=== PATIENT | female | born 1985 | race Caucasian/White ===

== ENCOUNTER 2017-07-31 13:56 | Emergency (ER) | payer MEDICARE ==
[~2017-07-31] VITALS: Ht 167.6 cm; Wt 88.2 kg
[~2017-07-31 13:56] MED LIST: RISP1TAB45 PO; ZOLP10TA PO
[2017-07-31 16:39] VITALS: BP 158/96
== END 2017-07-31 16:41 | disposition home or self-care (01) ==
LOC: ED 16:16
DX: F41.9 Anxiety disorder, unspecified (principal); I10 Essential (primary) hypertension; R45.851 Suicidal ideations
CPT/HCPCS: 93005; 99284

== ENCOUNTER 2019-01-27 20:45 | Emergency (ER) | payer MEDICARE ==
[~2019-01-27] VITALS: Ht 170.2 cm; Wt 67.0 kg
[2019-01-27 20:47] VITALS: BP 114/71
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
--- NOTE | 2019-01-27 21:52 | NUR ---
UNABLE TO OBTAIN CLINICAL SCREEN OR PHYSICAL ASSESSMENT DUE TO PT AGGRESSIVE BEHAVIOR AND DUE TO PT UNWILLINGNESS TO COOPERATE WITH STAFF QUESTIONS.
[2019-01-27 22:39] LABS: ALANINE AMINOTRANSFERASE 23 U/L (12-78); ALBUMIN 3.6 g/dL (3.4-5.0); ANION GAP 7 mmol/L (5-15); CALCIUM 9.1 mg/dL (8.5-10.1); CHLORIDE 109 mmol/L (98-107)
[2019-01-27 22:40] LABS: BASOPHILS # (AUTO) 0.06 x10^3/uL (0-0.1); BASOPHILS % (AUTO) 1 % (0-1); EOSINOPHILS # (AUTO) 0.13 x10^3/uL (0-0.4); EOSINOPHILS % (AUTO) 1 % (1-7); LYMPHOCYTES # (AUTO) 2.06 x10^3/uL (1-3.4); LYMPHOCYTES % (AUTO) 19 % (22-44); MD NO; MEAN CORPUSCULAR HEMOGLOBIN 30.1 pg (27.0-34.8); MEAN CORPUSCULAR HGB CONC 32.6 g/dL (32.4-35.8); MEAN CORPUSCULAR VOLUME 92.1 fL (80-100); MEAN PLATELET VOLUME 10.5 fL (7.4-10.4); MONOCYTES # (AUTO) 0.86 x10^3/uL (0.2-0.8); MONOCYTES % (AUTO) 8 % (2-9); NEUTROPHILS # (AUTO) 7.87 x10^3/uL (1.8-6.8); NEUTROPHILS % (AUTO) 72 % (42-75); PLATELET COUNT 231 x10^3/uL (130-400); RED BLOOD COUNT 5.08 x10^6/uL (3.82-5.3); RED CELL DISTRIBUTION WIDTH 13.6 % (9.6-15.2); SALICYLATE LEVEL < 1.7 mg/dL (2.8-20.0)
[2019-01-27 22:41] LABS: ALKALINE PHOSPHATASE 90 U/L (45-117); BILIRUBIN,TOTAL 0.5 mg/dL (0.2-1.0); CREATININE 0.78 mg/dL (0.55-1.02); TOTAL PROTEIN 7.6 g/dL (6.4-8.2)
--- NOTE | 2019-01-27 23:31 | NUR ---
REPORT FROM INDRA ZARAGOZA. PT AMBULATED STEADILY TO ROOM 41 FOR CONTINUED CARE. ROOM SECURE. SITTER PRESENT. NO PERSONAL BELONGINGS NOTED IN ROOM. PT AWAKE/ALERT, REQUESTING A MEAL. PT UP TO RESTROOM TO PROVIDE DOA. SI COMPLIANT MEAL TRAY ORDERED
--- NOTE | 2019-01-27 23:38 | NUR ---
DOA COLLECTED AND SENT TO LAB
[2019-01-27 23:58] LABS: AMPHETAMINE SCREEN, URINE Negative (Negative); BARBITURATE SCREEN, URINE Negative (Negative); BENZODIAZEPINE SCREEN, URINE Negative (Negative); CANNABINOID SCREEN, URINE Negative (Negative); COCAINE SCREEN, URINE Negative (Negative); METHADONE SCREEN, URINE Negative (Negative); OPIATE SCREEN, URINE Negative (Negative)
--- NOTE | 2019-01-28 00:23 | NUR ---
PT PROVIDED SI COMPLIANT MEAL TRAY. PT CALM AND COOPERATIVE. SITTER REMAINS AT DOORWAY
--- NOTE | 2019-01-28 01:25 | NUR ---
REPORT RECEIVED FROM INDRA MARCOS. PLAN OF CARE DISCUSSED.
--- NOTE | 2019-01-28 01:39 | NUR ---
PATIENT RESTING IN HOSPITAL BED, RESPIRATIONS EVEN AND UNLABORED. DENIES NEEDS AT THIS TIME.
--- NOTE | 2019-01-28 01:54 | NUR ---
REPORT GIVEN TO INDRA LINTON. PLAN OF CARE DISCUSSED. INDRA LINTON STATES THEY WILL CALL AFTER THEY GET PSYCHIATRIST ORDERS TO SEND PATIENT UP.
== END 2019-01-28 02:43 | disposition home or self-care (01) ==
LOC: ED 01-28 00:01
DX: F29 Unspecified psychosis not due to a substance or known physiological condition (principal); Z72.9 Problem related to lifestyle, unspecified
CPT/HCPCS: 36415; 80053; 80307; 85025; 99283; 99284

== ENCOUNTER 2019-06-06 07:46 | Emergency (ER) | payer MEDICARE, MEDICAID ==
[~2019-06-06] VITALS: Ht 172.7 cm; Wt 75.0 kg
[~2019-06-06 07:46] MED LIST changes: +CARV3.1212 PO; +OLAN10TA9 PO; +PALI156D IM; +PRAZ2CAP2 PO
--- NOTE | 2019-06-06 07:53 | NUR ---
PT REFUSING VS, ONLY ANSWERING SELECT QUESTIONS.
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
--- NOTE | 2019-06-06 08:12 | NUR ---
RN BACK TO BEDSIDE TO UPDATE PT ON POC, TO TELL PT THAT THE ERP ORDERED MEDS, PT WAVED RN AWAY. RN UNABLE TO UPDATE PT.
--- NOTE | 2019-06-06 08:19 | NUR ---
ERP TO BEDSIDE, EDUCATING PT THAT ED STAFF IS HERE TO HELP, INFORMING PT OF RIGHTS.
--- NOTE | 2019-06-06 08:28 | NUR ---
PT TO IMAGING.
[2019-06-06] MEDS ORDERED: ONDANSETRON ODT 4 MG PO ONE (08:30)
[2019-06-06] MEDS ORDERED: CEFAZOLIN PMX 1GM/50ML 50 ML IVPB ONE (08:30)
[2019-06-06] MEDS ORDERED: LORazepam 2 MG/ML, 1ML IVPush ONE (08:30)
[2019-06-06] MEDS ORDERED: DIPH,PERTUSS(ACELL),TET VAC/PF 0.5 ML IM-VACC ONE ×2 (08:30→10:02)
--- NOTE | 2019-06-06 09:04 | NUR ---
VEHICLE DETAILER TO BEDSIDE TO ATTEMPT TO START IV, PT TOLD HIM TO "GET THE F OUT, I WANT A DOCTOR, NOT A SH*T FACE FER LIKE YOU." ERPS TO BEDSIDE WHILE NURSE TO ATTEMPT IV START. IV START UNSUCCESSFUL. PT EDUCATED AGAIN ABOUT PROFESSIONAL MEDICAL STAFF-PATIENT RELATIONSHIP AND THAT MEDICAL STAFF IS HERE TO HELP.
[2019-06-06] MEDS ORDERED: CEFAZOLIN PMX 1GM/50ML 50 ML ONE (09:27)
[2019-06-06] MEDS ORDERED: LORazepam 2 MG/ML, 1ML ONE (09:27)
--- NOTE | 2019-06-06 09:33 | NUR ---
chiara bills spoke with dr meredith
--- NOTE | 2019-06-06 09:40 | NUR ---
PT COOPERATIVE WITH SECOND IV ATTEMPT, IV STARTED, PT MEDICATED TO APR.
--- NOTE | 2019-06-06 10:36 | NUR ---
PT SITTING IN BED, WATCHING TV. NO SIGNS OF DISTRESS, WILL CONTINUE TO MONITOR.
--- NOTE | 2019-06-06 10:48 | NUR ---
PT LAYING IN BED, EYES CLOSED, RESPIRATIONS EVEN AND UNLABORED, SNORING HEARD.
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
[2019-06-06 11:45] VITALS: BP 152/82
--- NOTE | 2019-06-06 11:46 | NUR ---
PT CONDITION UNCHANGED, LIGHTS OFF TO PROMOTE REST. WILL CONTINUE TO MONITOR.
[2019-06-06] MEDS ORDERED: LIDOCAINE 1%-EPI 1:100K, 20ML ONE (12:19)
[2019-06-06] MEDS ORDERED: LIDOCAINE 1%-EPI 1:100K, 20ML INFIL ONE (12:30)
--- NOTE | 2019-06-06 12:30 | NUR ---
LATE ENTRY: AT 1200 PLASTIC SURGEON TO BEDSIDE TO SUTURE LIP. PT REFUSED. ERP TO BEDSIDE TO EDUCATE PT, PT AGREED. PT OUT OF ROOM ATTEMPTED TO LEAVE TO SMOKE. BROUGHT IN CONSENT TO BE SIGNED, PT REFUSED TO SIGN. PT EDUCATED THAT IF SHE DIDN'T WANT TO SIGN FOR LIP SUTURE SHE WOULD BE LEAVING AMA. PT OUT OF ROOM, SIGNED AMA, GAIT STEADY.
== END 2019-06-06 12:36 | disposition left against medical advice (07) ==
LOC: ED 09:59
DX: S01.511A Laceration without foreign body of lip, initial encounter (principal); S09.90XA Unspecified injury of head, initial encounter; R55 Syncope and collapse; I10 Essential (primary) hypertension; W22.8XXA Striking against or struck by other objects, initial encounter; Y93.89 Activity, other specified; Y92.410 Unspecified street and highway as the place of occurrence of the external cause; Y99.8 Other external cause status
CPT/HCPCS: 70486; 90471; 90715; 96365; 96375; 99284; J0690; J2060

== ENCOUNTER 2019-07-27 01:46 | Emergency (ER) | payer MEDICARE, MEDICAID ==
[~2019-07-27] VITALS: Ht 160 cm; Wt 82.8 kg
[2019-07-27 01:52] VITALS: BP 187/105
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
== END 2019-07-27 02:20 | disposition home or self-care (01) ==
LOC: ED 02:11
DX: F15.959 Other stimulant use, unspecified with stimulant-induced psychotic disorder, unspecified (principal); F22 Delusional disorders; I10 Essential (primary) hypertension
CPT/HCPCS: 99281

== ENCOUNTER 2019-09-12 18:28 | Emergency (ER) | payer MEDICARE, MEDICAID ==
[~2019-09-12] VITALS: Ht 162.6 cm; Wt 63.0 kg
--- NOTE | 2019-09-12 18:59 | NUR ---
Pt BIB [facility] Deputies on a Legal 2000. Pt verbally aggressive with Deputies and this RN. Pt placed on hold at [facility] for inabiliy to care for herself. Pt initially refusing to change into hospital gown, states "You don't punish the zuluaga! And thanks for putting me in the [address] with these spying eyes on me you fat ass bitch" Pt advised that abusive language is innapropriate and will not be tolerated. Security called to stand by for staff safety as well as the Deputies remaining at bedside. Pt removed all clothes and placed them into the provided bag. Pt refusing to allow this RN to assess pt vital signs. Pt refusing to provide urine sample or blood sample. All pt belongings placed in two bags, labeled with pt information and secured in locker. Pt's room secured, sitter requested from mosaic layer. Pt advised that she may not leave the room unless escorted by a staff member and also that the door may be closed but the curtain must remain open so that staff can have direct line of sight on pt. Pt verbalizes understanding of this. Report given to Hunter RN to assume care at this time.
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
--- NOTE | 2019-09-12 19:13 | NUR ---
Pt moved to room 02. Bedside report to Brittanie vuong. Roller doors in place. Sitter in hallway. All belongings taken from pt.
--- NOTE | 2019-09-12 19:16 | NUR ---
PT AMBULATORY TO ROOM, STILL DENIES FOOD AND INTERVENTIONS, STATES "NO THANK YOU, B" PACING IN ROOM, IN VIEW OF SITTER.
--- NOTE | 2019-09-12 20:07 | NUR ---
PT CONTINUES TO REFUSE LABS INCLUDING UA, STATES SHE WANTS A "SCRIPT." PT EDUCATED THAT THE ERP CANNOT PROVIDE THIS TO HER WITHOUT LAB WORK, PT STILL REFUSES.
[2019-09-12] MEDS ORDERED: ZIPRASIDONE 20 MG INJ IM ONE ×4 (20:27→21:30)
--- NOTE | 2019-09-12 21:01 | NUR ---
PT PROVIDED WITH JUICE AT REQUEST AND RE-EDUCATED ABOUT UA. PT HAS GONE FROM YELLING STAFF WALK BY ROOM TO LAYING IN BED.
--- NOTE | 2019-09-12 21:16 | NUR ---
PT STILL REFUSING LABS AND UA. PT TOLD SITTER "I WANT TO GET THE F OUT OF HERE."
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
--- NOTE | 2019-09-12 22:12 | NUR ---
PT HAS BEEN UP TO USE BATHROOM AGAIN, AGAIN REFUSED TO TAKE UA CUP WITH HER. LAB HAS RETURNED TO BEDSIDE, PT REFUSED LAB DRAW AGAIN.
[2019-09-12 23:23] LABS: BASOPHILS # (AUTO) 0.04 x10^3/uL (0-0.1); BASOPHILS % (AUTO) 0 % (0-1); EOSINOPHILS % (AUTO) 1 % (1-7); LYMPHOCYTES % (AUTO) 21 % (22-44); MD NO; MEAN CORPUSCULAR HEMOGLOBIN 30.3 pg (27.0-34.8); MEAN CORPUSCULAR HGB CONC 33.2 g/dL (32.4-35.8); MEAN CORPUSCULAR VOLUME 91.1 fL (80-100); MEAN PLATELET VOLUME 10.3 fL (7.4-10.4); MONOCYTES # (AUTO) 0.52 x10^3/uL (0.2-0.8); MONOCYTES % (AUTO) 6 % (2-9); NEUTROPHILS # (AUTO) 6.55 x10^3/uL (1.8-6.8); NEUTROPHILS % (AUTO) 72 % (42-75); PLATELET COUNT 195 x10^3/uL (130-400); RED BLOOD COUNT 4.76 x10^6/uL (3.82-5.3); RED CELL DISTRIBUTION WIDTH 14.3 % (9.6-15.2)
[2019-09-12 23:36] LABS: ALBUMIN 3.5 g/dL (3.4-5.0); CALCIUM 8.6 mg/dL (8.5-10.1); CHLORIDE 113 mmol/L (98-107)
[2019-09-12 23:42] LABS: ALANINE AMINOTRANSFERASE 17 U/L (12-78); ALKALINE PHOSPHATASE 74 U/L (45-117); BILIRUBIN,TOTAL 0.3 mg/dL (0.2-1.0); CREATININE 0.74 mg/dL (0.55-1.02); TOTAL PROTEIN 6.9 g/dL (6.4-8.2)
[2019-09-13 00:03] LABS: FREE T4 (FREE THYROXINE) 1.09 ng/dL (0.76-1.46)
--- NOTE | 2019-09-13 01:14 | NUR ---
THROUGHPUT: Faxed packet to [facility], [place], [facility], and [facility]. [facility] not accepting at this time; no beds available.
--- NOTE | 2019-09-13 02:32 | NUR ---
TP rn: Margarito from [facility] called and stated "we are starting to look things over on our end." Potential for tx.
--- NOTE | 2019-09-13 03:45 | NUR ---
PT REMAINS SLEEPING AND IN VIEW OF THE SITTER, RESPIRATIONS EVEN AND UNLABORED.
[2019-09-13 03:47] LABS: ANION GAP 7 mmol/L (5-15)
--- NOTE | 2019-09-13 04:48 | NUR ---
MT: [facility] CALLED AND ACCEPTED PT FOR 9AM. ACCEPTING DOCTOR IS DR. CALLEJAS.
[2019-09-13 06:31] LABS: MICROSCOPIC AUTO
[2019-09-13 06:41] LABS: AMPHETAMINE SCREEN, URINE Negative (Negative); BARBITURATE SCREEN, URINE Negative (Negative); BENZODIAZEPINE SCREEN, URINE Negative (Negative); CANNABINOID SCREEN, URINE Negative (Negative); COCAINE SCREEN, URINE Negative (Negative); METHADONE SCREEN, URINE Negative (Negative); OPIATE SCREEN, URINE Negative (Negative)
--- NOTE | 2019-09-13 06:52 | NUR ---
Took report from Brittanie Snyder RN, assume care at this time.
--- NOTE | 2019-09-13 07:17 | NUR ---
Room is safe and secure with sitter outside room. 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 ED Diet tray ordered
[2019-09-13] MEDS ORDERED: ZIPRASIDONE 20 MG INJ IM ONE ×2 (08:41→09:00)
[2019-09-13 08:56] VITALS: BP 171/111
[2019-09-13] MEDS ORDERED: CARVEDILOL 3.125 MG TABLET PO ONE (09:00)
[2019-09-13] MEDS ORDERED: CARVEDILOL 3.125 MG TABLET ONE (09:09)
== END 2019-09-13 09:36 | disposition home or self-care (01) ==
LOC: ED 23:16
DX: F20.0 Paranoid schizophrenia (principal); F32.1 Major depressive disorder, single episode, moderate; R45.851 Suicidal ideations; Z72.9 Problem related to lifestyle, unspecified; I10 Essential (primary) hypertension
CPT/HCPCS: 36415; 80053; 80307; 81001; 84439; 84443; 84703; 85025; 87086; 96372; 99284; J3486